=== PATIENT | female | born 1945 | race Caucasian/White ===

== ENCOUNTER → 2017-05-02 | Outpatient (CLI) | payer MEDICARE ==
--- NOTE | 2017-05-02 10:05 | PCVCIMAG ---
APPROVED REPORT Indications Stenosis Risk Factors Hypertension: Hyperlipidemia Doppler Spectral Velocity Analysis PSV / EDVPSV / EDV ECA (R) 74 / 10 cm/sECA (L) 67 / 11 cm/s dICA (R) 59 / 20 cm/sdICA (L) 45 / 15 cm/s Isis (R) 62 / 19 cm/smICA (L) 52 / 16 cm/s pICA (R) 44 / 11 cm/spICA (L) 54 / 14 cm/s Bulb (R) 61 / 14 cm/sBulb (L) 55 / 15 cm/s dCCA (R) 73 / 17 cm/sdCCA (L) 66 / 16 cm/s mCCA (R) 81 / 13 cm/smCCA (L) 84 / 15 cm/s Vert (R) 42 / 12 cm/sVert (L) 41 / 12 cm/s ICA/CCA 0.85ICA/CCA 0.82 Basic Measurements Blood Pressure: Pulses: Right Left RightLeft Brachial(Sitting) 154/54ydKm395/88mmHgTemporal Real Time B-Mode Imaging Vert. (R)AntegradeVert. (L)Antegrade Findings The right carotid bulb has mild plaque. The right proximal internal carotid artery shows <40% stenosis. The right common carotid artery shows no significant stenosis. The right external carotid artery shows no significant stenosis. The left carotid bulb has mild plaque. The left proximal internal carotid artery shows no significant stenosis. The left common carotid artery shows no significant stenosis. The left external carotid artery shows no significant stenosis. Conclusion 1. Right internal carotid artery stenosis (<40%) 2. Left internal carotid artery plaquing 3. Antegrade vertebral flow
--- NOTE | 2017-05-02 17:55 | PCVCIMAG ---
APPROVED REPORT Study performed: 05/02/2017 09:55:21 EXAM: Comprehensive 2D, Doppler, and color-flow Echocardiogram Patient Location: Echo lab Status: routine BSA: 1.69 HR: 60 bpmBP: 154/90 mmHg Rhythm: NSR Other Information Study Quality: Good Indications Murmur Dyspnea Chest Pain 2D Dimensions LVEF(%): 72.49 (>50%) IVSd: 10.14 (7-11mm)LVOT Diam: 19.79 (18-24mm) LVDd: 41.77 mm PWd: 9.99 (7-11mm)Ascending Ao: 24.04 (22-36mm) LVDs: 24.55 (25-40mm) Left Atrium: 33.27 (27-40mm) Aortic Root: 18.83 mm LV Single Plane 4CH: 65.59 % LV Single Plane 2CH: 78.28 %Stapleton's LVEF: 71.93 % Biplane EF: 73.8 % Volumes Left Atrial Volume (Systole) Single Plane 4CH: 49.85 mLSingle Plane 2CH: 43.67 mL Biplane LA Volume: 47.00 mLLA ESV Index: 28.00 mL/m2 Aortic Valve AoV Peak Italo.: 1.87 m/s AO Peak Gr.: 13.93 mmHgLVOT Max P.94 mmHg LVOT Max V: 1.41 m/s CARL Vmax: 2.32 cm2 Mitral Valve E/A Ratio: 0.8 MV Decel. Time: 289.35 ms MV E Max Italo.: 1.24 m/s MV A Italo.: 1.48 m/s IVRT: 72.66 ms TDI E/Lateral E': 15.50E/Medial E': 20.67 Medial E' Italo.: 0.06 m/s Lateral E' Italo.: 0.08 m/s Pulmonary Valve PV Peak Italo.: 0.95 m/sPV Peak Gr.: 3.59 mmHg Pulmonary Vein P Vein S: 0.59 m/sP Vein A: 0.38 m/s P Vein D: 0.41 m/sP Vein A Dur.: 100.3 msec P Vein S/D Ratio: 1.44 Tricuspid Valve TR Peak Italo.: 2.28 m/s TR Peak Gr.: 20.80 mmHg TV Vmax: 0.92 m/sPA Pressure: 28.00 mmHg Left Ventricle The left ventricle is normal size. There is normal LV segmental wall motion. Borderline concentric left ventricular hypertrophy. Left ventricular systolic function is normal. The left ventricular ejection fraction is within the normal range. LVEF is >70%. Grade I - abnormal relaxation pattern. Right Ventricle The right ventricle is normal size. The right ventricular systolic function is normal. Atria The left atrium size is normal. The right atrium size is normal. Aortic Valve Aortic valve is trileaflet. Mild sclerosis. No aortic regurgitation is present. There is no aortic valvular stenosis. Mitral Valve Moderate mitral annular calcification. Mild calcific leaflet changes. There is no mitral valve regurgitation No evidence of mitral valve stenosis. Tricuspid Valve The tricuspid valve is normal in structure. There is trivial tricuspid valve regurgitation noted with a PA pressure of 28mmHg. Pulmonic Valve The pulmonary valve is normal in structure. There is no pulmonic valvular regurgitation. Great Vessels The aortic root is normal in size. The ascending aorta is normal in size. IVC is normal in size and collapses with >50% inspiration Pericardium There is no pericardial effusion. There is no pleural effusion. <Conclusion> Left ventricular systolic function is normal. There is normal LV segmental wall motion. LVEF is >70%. Grade I diastolic dysfunction Aortic valve is trileaflet. Mild sclerosis. No aortic valvular stenosis or insufficiency Moderate mitral annular calcification. Mild calcific leaflet changes. No mitral valve regurgitation There is trivial tricuspid valve regurgitation noted with a PA pressure of 28mmHg. There is no pericardial effusion.
--- NOTE | 2017-05-03 09:10 | PCVCIMAG ---
APPROVED REPORT Exam: Nuclear Stress Test Indication: Chest pain, Dyspnea, High Ca Score Patient Location: Out-Patient Stress Nurse: Ngozi Tristan RN, Jacquelin Newell RN [place] Tech:Manuela DominguezCAROLYN petersen Ht: 5 ft 2 in Wt: 148 lbs BSA: 1.68 m2 HR: 65 bpm BP: 185/84 mmHg BMI: 27.0 Rhythm: SR Medical History Medical History: HTN, Hyperlipidemia, Age Medications: Xanax, Norvasc, Triglide, Losartan, Prilosec, Tramadol Allergies: Tylenol Pretest Chest Pain Characteristics: No chest pain Exercise History: Indeterminate NM EXAM: Myocardial Perfusion REST/STRESS Imaging Protocol: Rest Tc-99m/Stress Tc-99m 1 day Resting Data Rest SPECT myocardial perfusion imaging was performed in supine position 45 minutes following the intravenous injection of 11.9 mCi of Tc-99m Sestamibi. Time of rest injection: 1100 Date: 05/02/2017 Administration Route: IV Administration Site: Right Arm Pharmacologic Stress Pharmacologic stress test was performed by injecting Regadenoson 0.4 mg IV push followed by the intravenous injection of 32.6 mCi of Tc-99m Sestamibi. Time of stress injection: 1240 Date: 05/02/2017 Administration Route: IV Administration Site: Right Arm Gated Stress SPECT was performed 45 minutes after stress injection. The images were gated to evaluate regional wall motion and calculate left ventricular ejection fraction. Study Quality Study: Good Study Data Post stress, the left ventricular ejection was 78%.. SSS: 0 SRS: 0 SDS: 0 TID = 1.00. Perfusion No evidence of stress induced ischemia or prior myocardial infarction. Wall Motion Normal left ventricular size and function with no regional wall motion abnormalities. Nuclear Conclusion No evidence of stress induced ischemia or prior myocardial infarction. Normal left ventricular size and function with no regional wall motion abnormalities. Post stress, the left ventricular ejection was 78%.. No prior study available for comparison. Interpreted by: Nazario Brar MD Electronically Approved: 05/02/2017 23:16:00 Stress Test Details Stress Test: Pharmacologic stress testing performed using 0.4 mg of regadenoson per 5 mL given IV over 10 seconds. Reason for pharmacologic stress test: physical limitation. HR Resting HR: 65 bpmMax Heart Rate (APMHR): 148 bpm Max HR Achieved: 96 bpmTarget HR (85% APMHR): 125 bpm % of APMHR: 64 Recovery HR: 95 bpm BP Resting BP: 185/84 mmHg Max BP: 194/84 mmHg ECG Resting ECG: Sinus Rhythm, nonspecific ST-T abnormalities Stress ECG: Sinus Rhythm ST Change: Non-ischemic Arrhythmia: None Recovery ECG: Sinus Rhythm, NSSTT changes Recovery ST Deviation: 0 mm Clinical Reason for Termination: Completed protocol Stress Symptoms: Headache, Abdominal discomfort Exercise duration: 0 min 55 sec Exercise capacity: 1 METs Symptoms resolved during recovery. Stress ECG Conclusion ECG: Non-ischemic Clinical: Non-ischemic <Conclusion> ECG: Non-ischemic Clinical: Non-ischemic
== END | disposition home or self-care (01) ==
LOC: PCVCIMAG 09:51
PROVIDERS: ATTEND Internal Medicine
DX: I65.23 Occlusion and stenosis of bilateral carotid arteries (principal); I10 Essential (primary) hypertension; E78.5 Hyperlipidemia, unspecified; R07.9 Chest pain, unspecified; I07.1 Rheumatic tricuspid insufficiency; R93.1 Abnormal findings on diagnostic imaging of heart and coronary circulation; K52.9 Noninfective gastroenteritis and colitis, unspecified
CPT/HCPCS: 78452; 93017; 93306; 93880; A9500